=== PATIENT | female | born 1985 | race Caucasian/White ===

== ENCOUNTER 2017-03-07 17:22 | Emergency (ER) | payer MEDICAID | END 2017-03-07 19:41 | disposition home or self-care (01) | LOC: D.ER 17:22 | DX: J20.9 Acute bronchitis, unspecified (principal); K08.89 Other specified disorders of teeth and supporting structures; K02.9 Dental caries, unspecified; F17.200 Nicotine dependence, unspecified, uncomplicated ==

== ENCOUNTER 2017-11-18 12:48 | Emergency (ER) | payer MEDICAID ==
[~2017-11-18] VITALS: Ht 165.1 cm; Wt 68.2 kg
[2017-11-18 12:57] VITALS: Ht 165.1 cm; Wt 68.2 kg
[2017-11-18] MEDS ORDERED: ZOFRAN8 MG PO (16:34)
[2017-11-18] MEDS ORDERED: TYLENOL W/CODEI1 TAB PO (16:34)
[2017-11-18 17:12] VITALS: BP 142/90
== END 2017-11-18 17:14 | disposition home or self-care (01) ==
LOC: D.ER 12:48
DX: F07.81 Postconcussional syndrome (principal); R11.2 Nausea with vomiting, unspecified